=== PATIENT | male | born 1995 | race African-American/Black ===

== ENCOUNTER 2024-08-27 20:27 | Emergency (ER) | payer BC, SELFPAY ==
[2024-08-27 20:35] VITALS: BP 134/86
[2024-08-27 20:59] LABS: % Basophils 0.4 % (0-2); % Eosinophils 0.6 % (0-6); % Immature Granulocytes 0.1 % (0-0.5); % Lymphocytes 32.2 % (20.5-51.1); % Monocytes 7.1 % (1.7-9.3); % Neutrophils 59.6 % (42.2-75.2); Absolute Eosinophils 0.1 10^3/uL (0-0.7); Absolute Lymphocytes 2.6 10^3/uL (1.2-3.4); Absolute Monocytes 0.6 10^3/uL (0.1-0.6); Absolute Neutrophils 4.8 10^3/uL (1.4-6.5); Hematocrit 43.4 % (39.0-52.0); Hemoglobin 14.1 g/dL (13.0-18.0); Mean Corp Hgb Conc. 32.5 g/dL (33.0-37.0); Mean Corpuscular Hgb 26.2 pg (27.0-31.0); Mean Corpuscular Volume 80.5 fL (80.0-94.0); Mean Platelet Volume 12.8 fL (7.4-10.4); Nucleated Red Blood Cells % 0 % (-); Platelet Count 185 10^3/uL (130-400); Red Blood Cell Count 5.39 10^6/uL (4.70-6.10); Red Cell Dist. Width 13.9 % (11.5-14.5)
[2024-08-27 21:06] LABS: ALT (SGPT) 18 U/L (0-50); AST (SGOT) 20 U/L (17-59); Albumin 4.2 g/dl (3.5-5.0); Alkaline Phosphatase 49 U/L (38-126); Blood Urea Nitrogen 23 mg/dl (9-20); Calcium 9.4 mg/dl (8.4-10.2); Carbon Dioxide 26 mmol/L (22-30); Chloride 108 mmol/L (98-107); Glucose 120 mg/dl (70-99); Sodium 142 mmol/L (135-145); Total Bilirubin 0.4 mg/dl (0.2-1.3); Total Protein 6.7 g/dl (6.3-8.2); eGFR > 60.00
[2024-08-27 23:15] VITALS: BP 134/89
--- NOTE | 2024-08-27 23:23 | ED.GENMED ---
History of Present Illness
General
Chief Complaint: Swelling
Source: patient
Exam Limitations: none
Time Seen by Provider: 08/27/24 23:08
Nursing documentation reviewed up to this point in time: agreed with
History of Present Illness
History of Present Illness:
Patient is a 29-year-old male who presents to the ER for evaluation of itchy rash. Patient started with itchy rash yesterday around 6:30 PM. He reports it scattered to his arms chest back head and back of his neck. He denies any difficulty
breathing lip or tongue swelling. He denies any new soaps lotions detergents. He took 1, 25 mg Benadryl last night.
He does not feel ill or unwell.
He reports hand is mildy swollen, eye lid mildly itchy/ and mild swelling .
Patient was not outside gardening or does not believe he came in contact with poison roya Etc.
Past History
Past History
ED Past Medical History: None
ED Past Surgical History: None
Social History
Tobacco: Non-smoker
Alcohol: None
Review of Systems
Review of Systems
Allergies reviewed?: Yes
All Other Systems: ROS reviewed and negative except as documented in HPI and ROS
Constitutional: Reports no symptoms; Denies fever, fatigue or chills
EENT: Reports no symptoms and other (no lip or tongue swelling )
Respiratory: Reports no symptoms; Denies trouble breathing
Musculoskeletal: Reports no symptoms
Skin: Reports itching and rash
Neurological: Reports no symptoms
Psychiatric: Reports no symptoms
Phy Exam
General Physical Exam
General Presentation: no apparent distress
General age: appears stated age
General Skin: warm and dry
General Habitus: normal
General Mental: alert
General Hydration: appears well hydrated
Eye Exam
Eye Exam: PERRL, EOMI and other (No obvious eyelid swelling bilaterally)
Cardiovascular Exam
Cardiovascular Exam: regular rate/rhythm, no murmur and normal peripheral pulses
Pulmonary Exam
Pulmonary Exam: lungs clear and no respiratory distress
Neurological Exam
Neurological Exam: alert and oriented x3
Musculoskeletal Exam
Musculoskeletal Exam: full ROM and other (no obvious swelling )
Skin Exam
Skin Exam: normal color, warm/dry and other (+ scattered erythema and macular papular rash to face back of neck chest/back//arms )
Psychiatric Exam
Psychiatric Exam: normal mood/affect
Course
Orders/Labs/Results
Orders:
Orders
08/27/24 20:42
Complete Blood Count/With Diff Urgent
Comprehensive Metabolic Panel Urgent
08/27/24 23:23
Dexamethasone Pf [Decadron] 10 mg PO NOW STA
Diphenhydramine [Benadryl] 50 mg PO NOW STA
Famotidine [Pepcid] 20 mg PO NOW STA
Abnormal Lab Results
08/27/24
20:42
MCH 26.2 L pg
(27.0-31.0)
MCHC 32.5 L g/dL
(33.0-37.0)
MPV 12.8 H fL
(7.4-10.4)
Chloride 108 H mmol/L
(98-107)
BUN 23 H mg/dl
(9-20)
Glucose 120 H mg/dl
(70-99)
08/27/24 20:42
08/27/24 20:42
Vital Signs
Initial and Last Documented VS:
Initial Vital Signs
Temp Pulse Resp BP Pulse Ox
97.9 F 85 18 134/86 98
08/27/24 20:35 08/27/24 20:35 08/27/24 20:35 08/27/24 20:35 08/27/24 20:35
Last Documented Vital Signs
Temp Pulse Resp BP Pulse Ox
97.9 F 85 18 134/89 99
08/27/24 20:35 08/27/24 20:35 08/27/24 20:35 08/27/24 23:15 08/27/24 23:15
MDM/Problems Addressed
MDM/Problems Addressed:
Patient with itchy rash since yesterday however no acute distress nontoxic nonhypoxic no hoarse voice no lip or tongue swelling or difficulty breathing afebrile no acute distress. Possible allergic versus contact dermatitis. Will give Benadryl
Pepcid and Decadron here will send patient home with 3 days of prednisone if needed however discussed close close outpatient follow-up with PCP.
*Pulse Oximetry
Patient hypoxic: no
*Critical Care Note
Total Time (30-74mins, 75-104mins- exclusive of procedures): Not Applicable
ED Attending Note
-
Portions of this chart may have been created with voice recognition software.� Occasional wrong word or��sound alike� substitutions may have occurred due to the inherent limitations of voice recognition software.
Discharge Plan
Departure
Patient Disposition: Home (Routine Discharge)
Date of Disposition: 08/27/24
Time of Disposition: 23:32
Patient with high blood pressure during this ER visit?: Yes
Covid-19: Not Applicable
Discharge Problem:
Rash
Instructions: BLOOD PRESSURE
Prescriptions:
New
prednisone 20 mg tablet
40 mg PO DAILY Qty: 6 0RF
Activity Restrictions/Additional Instructions:
You were seen here today for a rash which is possibly allergic versus contact dermatitis. You were given oral steroids along with oral Pepcid and Benadryl. Please continue to take Benadryl every 4-6 hours. In addition a prescription for steroids
will be given to you to take daily for the next 3 days if needed. Please follow-up close with your family doctor in the next several days and return if any worsening of symptoms.
Interventions
Interventions:
*Risk Screen - Suicide Last Done: 08/27/24 20:36
*General Assessment Last Done: 08/27/24 20:36
*Neglect/Abuse Screening Last Done: 08/27/24 20:36
*ED COVID-19 Vaccine History Last Done: 08/27/24 20:36
Discharge Date and Time
Print Language: TANZANIAN
[2024-08-27] MEDS: DECADRON 10 MG PO (23:47)
[2024-08-27] MEDS: PEPCID 20 MG PO (23:47)
[2024-08-27] MEDS: BENADRYL 50 MG PO (23:47)
== END 2024-08-28 00:01 | disposition home or self-care (01) ==
LOC: EMR 20:27
PROVIDERS: Emergency Medicine; EMERGENCY PHYSICIAN Emergency Medicine; FAMILY PHYSICIAN Family Medicine
DX: R21 Rash and other nonspecific skin eruption (principal); L29.9 Pruritus, unspecified; M79.89 Other specified soft tissue disorders; R03.0 Elevated blood-pressure reading, without diagnosis of hypertension
CPT/HCPCS: 99283; 80053; 85025